=== PATIENT | male | born 1945 | race African-American/Black ===

== ENCOUNTER → 2017-03-23 | Day surgery (SDC) | payer MEDICARE ==
[2017-03-22 15:52] LABS: BASOPHILS % 0.6 % (0.0-1.0); EOSINOPHILS # (AUTO) 0.1 (0.0-0.4); EOSINOPHILS % 1.9 % (0.0-6.0); HEMATOCRIT 46.3 % (38.2-49.6); HEMOGLOBIN 15.7 g/dL (14.0-18.0); LYMPHOCYTES % 27.7 % (18.0-39.1); MEAN CORPUSCULAR HEMOGLOBIN 29.7 pg (28-32); MEAN CORPUSCULAR HGB CONC 33.9 g/dL (31-35); MEAN CORPUSCULAR VOLUME 87.5 fL (81-99); MONOCYTES # (AUTO) 0.5 (0.2-0.8); MONOCYTES % 7.5 % (4.4-11.3); NEUTROPHILS # (AUTO) 4.5 (2.1-6.9); PLATELET COUNT 208 x10e3/uL (140-360); RED BLOOD COUNT 5.29 x10e6/uL (4.3-5.7); RED CELL DISTRIBUTION WIDTH 13.2 % (11.7-14.4)
[2017-03-22 16:05] LABS: ANION GAP 14.1 mmol/L (8-16); BLOOD UREA NITROGEN 24 mg/dL (7-26); BUN/CREATININE RATIO 21 (6-25); CALCIUM 9.8 mg/dL (8.4-10.2); CARBON DIOXIDE 28 mmol/L (22-29); CHLORIDE 105 mmol/L (98-107); CREATININE, SERUM 1.14 mg/dL (0.72-1.25); EST GLOMERULAR FILTRATION RATE > 60 ML/MIN (60-); GLUCOSE 79 mg/dL (74-118); POTASSIUM 5.1 mmol/L (3.5-5.1); SODIUM 142 mmol/L (136-145)
--- NOTE | 2017-03-22 16:29 | Diagnostic Imaging Report ---
PROCEDURE: Frontal and lateral views of the chest. COMPARISON: None. INDICATIONS: PRE OP HERNIA SURGERY FINDINGS: Lines/tubes: None. Lungs: The lungs are well inflated and clear. There is no evidence of pneumonia or pulmonary edema. Pleura: There is no pleural effusion or pneumothorax. Heart and mediastinum: The heart and the mediastinum are normal. Bones: No acute bony abnormality. IMPRESSION: 1. No acute cardiopulmonary disease. Danae Gómez M.D. Dictated by: Danae Gómez M.D. on 03/22/2017 at 16:37 Electronically approved by: Danae Gómez M.D. on 03/22/2017 at 16:37
[~2017-03-23] MED LIST: ATORVASTATIN CA10 MG PO; BACITRACIN ZINC 15 GM OINT ONE; BUPIVACAINE 0.25% 30ML SDV INJ ONE; CEFAZOLIN SOD 1 GM VIAL ONE; DEXAMETHASONE SOD PHOS INJ 4 MG/ML VIAL ONE; FENTANYL CITRATE/PF 100MCG/2 ML INJ ONE; GLYCOPYRROLATE INJ 1MG/ 5 ML SYR ONE; HYDRALAZINE HCL 20 MG/ML VIAL ONE; HYDROCODONE/APAP 7.5MG-325MG 1 EA TAB ONE; LIDOCAINE 1% W/EPINEPHRINE 20 ML VIAL ONE; LIDOCAINE HCL 2% LOCAL INJ 5 ML SDV VIAL INJ ONE; NEOSTIGMINE 5 MG/5ML SYR ONE; ONDANSETRON HCL INJ 2 MG/ML VIAL ONE; PROPOFOL IV EMULSION 10 MG/ML 20 ML VIAL ONE; ROCURONIUM BROMIDE 10 MG/ML 5ML VIAL ONE; SEVOFLURANE INHAL SOLN 250 ML PEN BTL ONE
--- NOTE | 2017-03-23 09:16 | Operative Report ---
DATE OF PROCEDURE: March 23, 2017 PREOPERATIVE DIAGNOSIS: Right inguinal hernia. POSTOPERATIVE DIAGNOSIS: Right inguinal hernia. PROCEDURE PERFORMED: Repair right inguinal hernia with Ultra Pro hernia system, oval type. COMMUNICATIONS TECHNICIAN: LULA Haro ESTIMATED BLOOD LOSS: Minimal. DRAINS: None. COMPLICATIONS: None. INDICATIONS AND FINDINGS: A 72-year-old male admitted for repair of symptomatic right inguinal hernia. He developed a bulge 3 months ago. 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 INTRAOPERATIVE FINDINGS: Direct hernia sac with weakness of the floor. The Ultra Pro hernia system, oval type was deployed. There was no evidence of femoral herniation. DESCRIPTION OF PROCEDURE: With the patient lying on the operating table in the supine position and after administration of general anesthesia, he was prepped and draped for repair of right inguinal hernia. Pre-emptive anesthesia was given with 0 25% Marcaine with epinephrine as an ilioinguinal nerve block and an incisional nerve block. A transverse groin incision was made and deepened through the skin, subcutaneous tissue and Gini's fascia until the external oblique aponeurosis was identified. This was incised along the course of its fibers, transecting the external inguinal ring. Medial and lateral leads were developed. The cord was mobilized to the level of the pubic tubercle. Cremaster veil was incised. The cord explored and an indirect hernia sac was found. It was ligated with running 2-0 Vicryl sutures. After we performed that, we incised the transversalis fascia and created a pocket using blunt dissection. Then we deployed the Ultra Pro hernia system, oval type over the direct space, the underlay part of it and the overlay part of the mesh over the inguinal canal floor. A slit was made to accommodate the cord. Then the mesh was secured to local tissues using a series of interrupted 2 Ethibond sutures. The wound was irrigated. Bleeding points were cauterized. Then the wound was closed in layers using 2-0 Vicryl for the external oblique aponeurosis, 2-0 catgut for the soft tissues. The skin was closed using talisha. Then 0.25% Marcaine with epinephrine was given as local block at the end of the case. The patient tolerated the procedure well. Taken to the recovery room in stable condition. Job#: [id number]
== END | disposition home or self-care (01) ==
LOC: OR 05:36
PROVIDERS: ATTEND Surgery
DX: K40.90 Unilateral inguinal hernia, without obstruction or gangrene, not specified as recurrent (principal); R00.1 Bradycardia, unspecified; Z01.810 Encounter for preprocedural cardiovascular examination; Z01.812 Encounter for preprocedural laboratory examination; Z01.818 Encounter for other preprocedural examination
CPT/HCPCS: 36415; 49505; 71020; 80048; 85025; 93005; C1781; J0360; J0690; J1100; J2001; J2405